=== PATIENT | female | born 1980 | race Two or more races ===

== ENCOUNTER 2020-01-29 13:46 | Outpatient (CLI) | payer OTHER | END 2020-01-29 13:54 | disposition home or self-care (01) | LOC: LAB 13:46 | PROVIDERS: ATTEND General Practice | DX: J11.1 Influenza due to unidentified influenza virus with other respiratory manifestations (principal); Z11.59 Encounter for screening for other viral diseases; R05 Cough; R50.9 Fever, unspecified ==